=== PATIENT | male | born 1970 | race Caucasian/White ===

== ENCOUNTER 2017-08-21 11:28 | Outpatient (CLI) | payer MEDICAID | END 2017-08-21 11:29 | disposition critical access hospital (66) | LOC: EMS 11:28 | PROVIDERS: ATTEND Surgery | DX: R45.851 Suicidal ideations (principal); F10.129 Alcohol abuse with intoxication, unspecified; Y90.8 Blood alcohol level of 240 mg/100 ml or more | CPT/HCPCS: A0425; A0429 ==

== ENCOUNTER 2017-08-21 11:44 | Emergency (ER) | payer MEDICAID ==
[2017-08-21 12:00] VITALS: BP 136/84
--- NOTE | 2017-08-21 12:33 | ED Physician Documentation ---
PD HPI MHE - Stated complaint Stated Complaint: SI - Chief complaint Chief Complaint: MHE - History obtained from History obtained from: Patient - Additional information Additional information: This is a 47-year-old gentleman who is homeless, he admits to being an alcoholic. He says that he was in a parking lot today and tripped and fell. Someone called the police and they were talking to him and the police manager asked him if he was suicidal. The patient said that he was at rock-bottom "and this is why people put a gun to their head." He says that he is not actually suicidal and has no current access to weapons. Review of Systems Constitutional: reports: Reviewed and negative Cardiac: reports: Reviewed and negative Respiratory: reports: Reviewed and negative PD PAST MEDICAL HISTORY - Past Medical History Past Medical History: No - Past Surgical History Past Surgical History: Yes General: Splenectomy Ortho: Shoulder arthroplasty - Present Medications Home Medications: Ambulatory Orders Medication Instructions Recorded Confirmed chlordiazePOXIDE [Librium] 25 mg PO Q6H PRN #8 capsule 08/21/17 - Allergies Allergies/Adverse Reactions: Allergies Allergy/AdvReac Type Severity Reaction Status Date / Time Sulfa (Sulfonamide Allergy Unknown Verified 08/21/17 12:01 Antibiotics) - Social History Does the pt smoke?: Yes Smoking Status: Current every day smoker Does the pt drink ETOH?: Yes Does the pt have substance abuse?: No PD ED PE NORMAL - Vitals Vital signs reviewed: Yes - General General: Alert and oriented X 3, No acute distress - HEENT HEENT: PERRL, EOMI - Neuro Neuro: Alert and oriented X 3, Normal speech - Psych Psych: Normal mood, Normal affect Results - Vitals Vitals: Vital Signs - 24 hr 08/21/17 11:46 Temperature 36.8 C Heart Rate 96 Respiratory 12 Rate Blood Pressure 136/84 H O2 Saturation 96 Oxygen O2 Source Room air PD MEDICAL DECISION MAKING - ED course ED course: This is a 47-year-old gentleman who presents after making a suicidal statement to police, that he says was taken out of context. He denies suicidal ideation or homicidal ideation. He is cogent and wants to leave. There is no indication for involuntary hold. I offered to have him speak with the aids social worker about a respite or crisis bed which he declined. He did want a few Librium because he plans to quit drinking. Departure - Departure Disposition: 01 Home, Self Care Clinical Impression: Depressive disorder Alcoholic intoxication Qualifiers: Complication of substance-induced condition: uncomplicated Qualified Code(s): F10.920 - Alcohol use, unspecified with intoxication, uncomplicated Condition: Good Record reviewed to determine appropriate education?: Yes Instructions: ED Depression, ED Alcohol Intoxication Prescriptions: chlordiazePOXIDE [Librium] 25 mg PO Q6H PRN #8 capsule PRN Reason: Alcohol Withdrawal Comments: Call your doctor to arrange a follow-up appointment, make the next available appointment. In the interim, return anytime if worse or if new symptoms develop. Your blood pressure was elevated today on check into the emergency department. This does not mean that you have hypertension, it is a common phenomenon to come to the emergency department and have elevated blood pressure. I recommend that you see your primary care physician within the week to have it rechecked when you are feeling better.
== END 2017-08-21 12:42 | disposition home or self-care (01) ==
LOC: ED 11:44
DX: F32.9 Major depressive disorder, single episode, unspecified (principal); F10.129 Alcohol abuse with intoxication, unspecified; R03.0 Elevated blood-pressure reading, without diagnosis of hypertension; Z59.0 Homelessness; F17.200 Nicotine dependence, unspecified, uncomplicated
CPT/HCPCS: 99283

== ENCOUNTER 2017-08-26 12:11 | Outpatient (CLI) | payer MEDICAID | END 2017-08-26 12:12 | disposition critical access hospital (66) | LOC: EMS 12:11 | PROVIDERS: ATTEND Surgery | DX: R40.20 Unspecified coma (principal) | CPT/HCPCS: A0425; A0429 ==

== ENCOUNTER 2017-08-26 12:27 | Emergency (ER) | payer MEDICAID ==
[2017-08-26 13:25] LABS: HCT - HEMATOCRIT 48.5 % (42.0-52.0); HGB - HEMOGLOBIN 16.7 g/dL (14.0-18.0); MEAN CORPUSCULAR HEMOGLOBIN 34.5 pg (27.0-31.0); MEAN CORPUSCULAR HGB CONC 34.5 g/dL (32.0-36.0); MEAN CORPUSCULAR VOLUME 100.1 fL (80.0-94.0); MEAN PLATELET VOLUME 8.1 fL (7.4-11.4); RED BLOOD COUNT 4.84 10^6/uL (4.70-6.10); RED CELL DISTRIBUTION WIDTH 14.4 % (12.0-15.0); WHITE BLOOD COUNT 14.8 x10^3/uL (4.8-10.8)
[2017-08-26] MEDS ORDERED: THIAMINE INJ 100 MG, FOLIC ACID INJ 1 MG in SODIUM CHLORIDE 0.9% 100ML 100 ML IV STA (13:36)
[2017-08-26] MEDS ORDERED: MULTIVITAMIN 10 ML in SODIUM CHLORIDE 0.9% 1,000 ML IV STA (13:36)
[2017-08-26] MEDS ORDERED: MAGNESIUM SULFATE 2 GRAM 2 GM/50 ML BAG IV STA (13:36)
[2017-08-26] MEDS ORDERED: THIAMINE 100 MG/1 ML 2 ML MDV ONE (13:46)
[2017-08-26] MEDS ORDERED: MAGNESIUM SULFATE 2 GRAM 2 GM/50 ML BAG IV ONE (14:02)
[2017-08-26 14:17] LABS: ACETAMINOPHEN < 10 ug/mL (10-30); ALBUMIN/GLOBULIN RATIO 1.3 (1.0-2.2); BILIRUBIN,TOTAL 0.4 mg/dL (0.2-1.0); BUN - BLOOD UREA NITROGEN 9 mg/dL (6-20); CALCIUM 8.8 mg/dL (8.5-10.3); CARBON DIOXIDE - CO2 23 mmol/L (21-32); CHLORIDE 106 mmol/L (101-111); CREATININE 0.6 mg/dL (0.6-1.2); GFR - MDRD 144 (>89); GLUCOSE 89 mg/dL (70-100); LIPASE 35 U/L (22-51); POTASSIUM 3.9 mmol/L (3.5-5.0); SALICYLATE < 6.0 mg/dL; SODIUM 144 mmol/L (135-145); TOTAL PROTEIN 7.7 g/dL (6.7-8.2)
--- NOTE | 2017-08-26 15:10 | XRAY Preliminary Report ---
Exam: XR CHEST 2 VIEW PA/LAT IMPRESSION: No acute cardiopulmonary abnormality. [facility] SITE ID: [id number]
--- NOTE | 2017-08-26 15:12 | XRAY Report ---
EXAM: CHEST RADIOGRAPHY EXAM DATE: 08/26/2017 03:03 PM. CLINICAL HISTORY: Cough. Concern for pneumonia. COMPARISON: None. TECHNIQUE: 2 views. FINDINGS: Lungs/Pleura: Normal volumes. No focal consolidation or evidence of edema. No pleural effusion or pne umothorax. Mediastinum: Normal cardiomediastinal contour. Other: Multiple old left rib fractures. IMPRESSION: No acute cardiopulmonary abnormality. [facility] Referring Provider Line: [phone] SITE ID: [id number]
[2017-08-26] MEDS ORDERED: LORazepam 2 MG/ML SYRINGE IVP STA (21:05)
[2017-08-26] MEDS ORDERED: ONDANSETRON 4 MG/2 ML VIAL IVP STA (21:06)
[2017-08-26] MEDS ORDERED: ONDANSETRON 4 MG/2 ML VIAL ONE (21:11)
[2017-08-26] MEDS ORDERED: LORazepam 2 MG/ML SYRINGE ONE (21:11)
[2017-08-26] MEDS ORDERED: chlordiazePOXIDE 25 MG CAPSULE PO STA (21:43)
[2017-08-26] MEDS ORDERED: chlordiazePOXIDE 25 MG CAPSULE PO ONE (21:59)
--- NOTE | 2017-08-26 22:41 | ED Physician Documentation ---
History of Present Illness - Stated complaint Stated Complaint: ALOC - Chief complaint Chief Complaint: Neuro - History obtained from History obtained from: Patient (pt is here for evaluation after he was brought in by EMS for being drunk and having a possible seizure. pt states that he was sober for 2 years then started drinking again in jun of this year. he states that he drinks every day. He states that his last drink was approx 0900 on . He states he does not know if he has had a seizure this AM. states no prior hx of seizures but has had withdrawn from ETOh in the past. he staes that "I just want to put a bullet in my head" because of the ETOH use.) Review of Systems Constitutional: denies: Fever, Chills Eyes: denies: Loss of vision Ears: denies: Loss of hearing Throat: denies: Sore throat Cardiac: denies: Chest pain / pressure, Palpitations Respiratory: denies: Dyspnea, Cough, Hemoptysis, Wheezing GI: reports: Nausea, Vomiting. denies: Abdominal Pain, Constipation, Diarrhea : denies: Dysuria, Frequency Skin: denies: Rash, Lesions Musculoskeletal: denies: Neck pain, Back pain, Extremity pain, Joint swelling Neurologic: reports: Seizure. denies: Generalized weakness, Focal weakness, Confused, Headache, Head injury Psychiatric: reports: Depressed, Suicidal. denies: Hallucinations PD PAST MEDICAL HISTORY - Past Medical History Past Medical History: No Other Past Medical History: ETOH SZ - Past Surgical History Past Surgical History: Yes General: Splenectomy Ortho: Shoulder arthroplasty - Present Medications Home Medications: Ambulatory Orders Medication Instructions Recorded Confirmed No Known Home Medications [No 08/26/17 08/26/17 Known Home Medications] - Allergies Allergies/Adverse Reactions: Allergies Allergy/AdvReac Type Severity Reaction Status Date / Time Sulfa (Sulfonamide Allergy Unknown Verified 08/26/17 12:35 Antibiotics) - Social History Does the pt smoke?: Yes Smoking Status: Current every day smoker Does the pt drink ETOH?: Yes Does the pt have substance abuse?: No - Immunizations Immunizations are current?: Yes - POLST Patient has POLST: No PD ED PE NORMAL - Vitals Vital signs reviewed: Yes - General General: Alert and oriented X 3. No: No acute distress (mild distress ) - Cardiac Cardiac: RRR, No murmur, No gallop - Respiratory Respiratory: No respiratory distress, Clear bilaterally - Abdomen Abdomen: Soft, Non tender, Non distended - Derm Derm: Normal color, Warm and dry, No rash - Extremities Extremities: No deformity, No edema - Neuro Neuro: Alert and oriented X 3, No motor deficit, No sensory deficit, Normal speech - Psych Psych: Normal affect (flat affect). No: Normal mood (depressed mood ) Results - Vitals Vitals: Vital Signs - 24 hr 08/26/17 08/26/17 08/26/17 12:31 14:02 14:30 Temperature 37.1 C Heart Rate 99 84 Respiratory 16 18 Rate Blood Pressure 129/93 H 106/67 O2 Saturation 96 94 86 L 08/26/17 08/26/17 08/26/17 14:37 14:45 15:57 Temperature Heart Rate 78 73 Respiratory 16 18 Rate Blood Pressure 99/67 105/69 O2 Saturation 92 98 92 08/26/17 08/26/17 19:06 21:33 Temperature 37.0 C Heart Rate 84 Respiratory 16 18 Rate Blood Pressure 114/67 104/61 O2 Saturation 94 93 Oxygen O2 Source Room air - Labs Labs: Laboratory Tests 08/26/17 08/26/17 08/26/17 13:08 13:08 13:10 WBC 14.8 H RBC 4.84 Hgb 16.7 Hct 48.5 MCV 100.1 H MCH 34.5 H MCHC 34.5 RDW 14.4 Plt Count 378 MPV 8.1 Sodium 144 Potassium 3.9 Chloride 106 Carbon Dioxide 23 Anion Gap 15.0 H BUN 9 Creatinine 0.6 Estimated GFR (MDRD) 144 Glucose 89 Calcium 8.8 Total Bilirubin 0.4 AST 75 H ALT 69 H Alkaline Phosphatase 79 Total Protein 7.7 Albumin 4.4 Globulin 3.3 Albumin/Globulin Ratio 1.3 Lipase 35 Salicylates < 6.0 Urine Opiates Screen NEGATIVE Ur Oxycodone Screen NEGATIVE Urine Methadone Screen NEGATIVE Ur Propoxyphene Screen NEGATIVE Acetaminophen < 10 L Ur Barbiturates Screen NEGATIVE Ur Tricyclics Screen NEGATIVE Ur Phencyclidine Scrn NEGATIVE Ur Amphetamine Screen NEGATIVE U Methamphetamines Scrn NEGATIVE U Benzodiazepines Scrn POSITIVE H Urine Cocaine Screen NEGATIVE U Cannabinoids Screen NEGATIVE Ethyl Alcohol 333.4 08/26/17 20:39 WBC RBC Hgb Hct MCV MCH MCHC RDW Plt Count MPV Sodium Potassium Chloride Carbon Dioxide Anion Gap BUN Creatinine Estimated GFR (MDRD) Glucose Calcium Total Bilirubin AST ALT Alkaline Phosphatase Total Protein Albumin Globulin Albumin/Globulin Ratio Lipase Salicylates Urine Opiates Screen Ur Oxycodone Screen Urine Methadone Screen Ur Propoxyphene Screen Acetaminophen Ur Barbiturates Screen Ur Tricyclics Screen Ur Phencyclidine Scrn Ur Amphetamine Screen U Methamphetamines Scrn U Benzodiazepines Scrn Urine Cocaine Screen U Cannabinoids Screen Ethyl Alcohol 164.8 - Rads (name of study) CXR Radiology: Final report received PD MEDICAL DECISION MAKING - ED course Complexity details: d/w patient ED course: pt with elevated ETOh and had SI. he was crying in the room and depressed but states that he is depressed about his ETOh use. no other signs of toxic ingestion. Unsure if he had a seizure this AM. no signs of trauma. after observation in the ER he still is expressing a 'severe depression" and does not want to live. He states that he is willing to stay in the ER this evening and willing to talk with social work tomorrow. He was having some anxiety and shaking so ativan was given Librium was also given. Pt has been calm and not causing problems. Social work consult placed to come and see him and help with resources. Departure - Departure Clinical Impression: Alcohol abuse, Suicidal ideation, Depression, Alcoholic intoxication Condition: Good Instructions: ED Alcohol Intoxication, ED Depression
[2017-08-27] MEDS ORDERED: ONDANSETRON 4 MG/2 ML VIAL IVP STA ×2 (02:52→11:34)
[2017-08-27] MEDS ORDERED: LORazepam 2 MG/ML SYRINGE IVP STA ×3 (02:52→11:34)
[2017-08-27] MEDS ORDERED: LORazepam 2 MG/ML SYRINGE ONE ×3 (03:09→11:55)
--- NOTE | 2017-08-27 07:42 | ED Physician Documentation ---
ED Addendum - Addendum Addendum: 08/27/17 07:39 Patient rested overnight without complaint. He awakened at time to ask for some water and to go to bathroom. He is not having any shakiness nor vomiting. He did have some mild anxiety during middle of the night and was given PO Ativan. Will have SW talk with him this morning about depression and assess suicidal risk, and also information about detox.
[2017-08-27] MEDS ORDERED: ONDANSETRON ODT 4 MG TABLET TL STA (07:54)
[2017-08-27 07:59] VITALS: BP 119/67
[2017-08-27] MEDS ORDERED: ONDANSETRON ODT 4 MG TABLET ONE (08:16)
[2017-08-27] MEDS ORDERED: ONDANSETRON 4 MG/2 ML VIAL ONE (11:56)
[2017-08-27] MEDS ORDERED: NICOTINE 21 MG PATCH TOP STA (12:46)
[2017-08-27] MEDS ORDERED: NICOTINE 21 MG PATCH TOP ONE (13:03)
[2017-08-27] MEDS ORDERED: LORazepam 0.5 MG TABLET PO STA (14:26)
[2017-08-27] MEDS ORDERED: LORazepam 0.5 MG TABLET ONE (15:02)
== END 2017-08-27 15:44 | disposition home or self-care (01) ==
LOC: EDUNIT# → ED 12:27
DX: F10.129 Alcohol abuse with intoxication, unspecified (principal); R45.851 Suicidal ideations; F32.9 Major depressive disorder, single episode, unspecified; F41.9 Anxiety disorder, unspecified; F17.200 Nicotine dependence, unspecified, uncomplicated
CPT/HCPCS: 36415; 71020; 80053; 80306; 80307; 80320; 80329; 83690; 84443; 85027; 96365; 96366; 96368; 96375; 96376; 99284; 99285; A9270; J2060; J3411; Q0162